=== PATIENT | female | born 1980 | race Caucasian/White ===

== ENCOUNTER 2016-10-19 20:33 | Emergency (ER) | payer MEDICAID ==
[~2016-10-19] VITALS: Ht 162.6 cm; Wt 98.4 kg
[~2016-10-19 20:33] MED LIST: CLARITIN10 M1 PO; PNV-DHA1 SGL PO; PRENATAL VITAMI1 T10 PO
[2016-10-19 20:42] VITALS: BP 168/85
--- NOTE | 2016-10-19 21:30 | NUR ---
PT TAKEN TO BED 3
--- NOTE | 2016-10-19 21:57 | NUR ---
PATIENT PRESENTS TO ED WITH ABD PAIN WITH N/V . PT STATES SHE HAS HAD ABD PAIN X2DAYS . DENIES DIARRHEA; SKIN IS PINK/WARM/DRY; AAOX4 WITH EVEN AND STEADY GAIT; LUNGS CLEAR BL; HR EVEN AND REGULAR; PT DENIES ANY FEVER, CP, SOB, OR COUGH AT THIS TIME; PATIENT STATES PAIN OF 10/10 AT THIS TIME; VSS; PATIENT POSITIONED FOR COMFORT; HOB ELEVATED; BEDRAILS UP X2; BED DOWN. ER MD MADE AWARE OF PT STATUS.
--- NOTE | 2016-10-19 22:01 | NUR ---
Dr. Hunt evaluating patient at bedside.
[2016-10-19] MEDS ORDERED: MORPHINE SULFATE 4 MG/ML SYR IM ONE (22:05)
[2016-10-19] MEDS ORDERED: ONDANSETRON 4 MG/2 ML VIAL IVP ONE (22:05)
--- NOTE | 2016-10-19 22:36 | NUR ---
PT TAKEN TO ULTRASOUND
[2016-10-20 00:33] VITALS: BP 165/85
--- NOTE | 2016-10-20 00:33 | NUR ---
Patient discharged with v/s stable. Written and verbal after care instructions given and explained. Patient alert, oriented and verbalized understanding of instructions. Ambulatory with steady gait. All questions addressed prior to discharge. ID band removed. Patient advised to follow up with PMD. Rx of TRAMADOL HYDROCHLORIDE given. Patient educated on indication of medication including possible reaction and side effects. Opportunity to ask questions provided and answered.
--- NOTE | 2016-10-20 00:33 | NUR ---
IV removed, catheter intact and site benign. Applied folded 4x4 gauze and tape to stop bleeding.
== END 2016-10-20 00:33 | disposition home or self-care (01) ==
LOC: MED 20:33
DX: R10.11 Right upper quadrant pain (principal); R11.2 Nausea with vomiting, unspecified; R07.89 Other chest pain
CPT/HCPCS: 36415; 76705; 80053; 81001; 81025; 82150; 83036; 83690; 84703; 85025; 86704; 86706; 87340; 96374; 96375; 99284; J2270; J2405

== ENCOUNTER 2019-01-30 22:45 | Emergency (ER) | payer MEDICAID ==
[~2019-01-30] VITALS: Ht 162.6 cm; Wt 95.7 kg
[~2019-01-30 22:45] MED LIST changes: -CLARITIN10 M1 PO; +LORA10TA19 PO; -PNV-DHA1 SGL PO; -PRENATAL VITAMI1 T10 PO
[2019-01-30 22:53] VITALS: BP 145/81
--- NOTE | 2019-01-30 22:58 | NUR ---
Pt taken to bed 3. Report given to Kameron NEWTON.
[2019-01-30 23:07] LABS: APPEARANCE,URINE HAZY (CLEAR); BILIRUBIN,URINE NEGATIVE (NEGATIVE); BLOOD, URINE TRACE-I (NEGATIVE); COLOR,URINE YELLOW (YELLOW); LEUKOCYTE ESTERASE ,URINE TRACE (NEGATIVE); NITRITE, URINE NEGATIVE (NEGATIVE); UGLUCOSE NEGATIVE (NEGATIVE)
--- NOTE | 2019-01-30 23:16 | NUR ---
PT TO ED WITH C/O URINARY BURNING, FREQUENCY, FOUL ODOR, AND HEMATURIA X 4 DAYS. PT ALSO REPORTING LOWER BACK PAIN. NO OBVIOUS BLADDER DISTENTION NOTED. PT DENIES ANY OTHER S/S. PT PLACED INTO BED, PENDING MD PEDROZA.
[2019-01-30 23:18] LABS: RBC,URINE 0-5 /HPF (0-5)
[2019-01-30 23:19] LABS: URINE AMORPHOUS URATE 1+ /HPF (None Seen)
[2019-01-30] MEDS ORDERED: cefTRIAXone 1,000 MG VIAL ONE (23:54)
[2019-01-30 23:59] LABS: BASOPHILS % (AUTO) 0.5 % (0.0-2.0); EOSINOPHILS # (AUTO) 0.1 K/uL (0-0.4); EOSINOPHILS % (AUTO) 1.2 % (0.0-4.0); HEMATOCRIT 36.3 % (36-48); HEMOGLOBIN 12.8 g/dL (12.0-16.0); LYMPHOCYTES % (AUTO) 24.7 % (20.5-51.1); MEAN CORPUSCULAR HEMOGLOBIN 32 pg (27-31); MEAN CORPUSCULAR HGB CONC 35 g/dL (33-37); MEAN CORPUSCULAR VOLUME 89.6 fL (80-94); MONOCYTES # (AUTO) 0.8 K/uL (0.8-1.0); MONOCYTES % (AUTO) 9.6 % (1.7-9.3); NEUTROPHILS # (AUTO) 5.2 K/uL (1.8-7.7); PLATELET COUNT (AUTO) 269 K/uL (140-450); RED BLOOD CELL COUNT(AUTO) 4.05 MIL/uL (4.20-5.40); RED CELL DISTRIBUTION WIDTH 12.1 % (11.6-13.7)
[2019-01-31 00:09] LABS: ANION GAP 14.1 (8-16); CARBON DIOXIDE 29.6 mmol/L (21-32); CREATININE 0.7 mg/dL (0.6-1.3); POTASSIUM 3.7 mmol/L (3.5-5.1)
[2019-01-31 00:14] LABS: ALBUMIN 3.8 g/dL (3.4-5.0); TOTAL BILIRUBIN 0.4 mg/dL (0.0-1.0)
[2019-01-31 01:00] VITALS: BP 138/76
== END 2019-01-31 01:00 | disposition home or self-care (01) ==
LOC: MED 22:45
DX: N12 Tubulo-interstitial nephritis, not specified as acute or chronic (principal); E11.9 Type 2 diabetes mellitus without complications; I10 Essential (primary) hypertension; Z79.899 Other long term (current) drug therapy
CPT/HCPCS: 36415; 80053; 81001; 81025; 85025; 87086; 96365; 99283; J0696; J7060